=== PATIENT | female | born 1995 | race African-American/Black ===

== ENCOUNTER 2016-11-24 05:49 | Emergency (ER) | payer SELFPAY ==
[~2016-11-24] VITALS: Ht 160 cm; Wt 73.0 kg
[~2016-11-24 05:49] MED LIST: [UNRECOGNIZED DRUG - REMARK]
[2016-11-24 07:40] LABS: HCG SCREEN NEGATIVE
[2016-11-24 09:10] VITALS: BP 102/68
== END 2016-11-24 09:11 | disposition home or self-care (01) ==
LOC: ER 05:54
DX: S00.83XA Contusion of other part of head, initial encounter (principal); S00.511A Abrasion of lip, initial encounter; S00.93XA Contusion of unspecified part of head, initial encounter; Y04.0XXA Assault by unarmed brawl or fight, initial encounter; Y93.89 Activity, other specified; Y92.018 Other place in single-family (private) house as the place of occurrence of the external cause
CPT/HCPCS: 70450; 70486; 84703; 99285